=== PATIENT | female | born 1945 | race African-American/Black ===

== ENCOUNTER 2024-07-13 12:00 | Emergency (ER) | payer OTHER ==
[~2024-07-13] VITALS: Ht 165.1 cm; Wt 73.0 kg
[2024-07-13 12:05] VITALS: O2SAT 100
[2024-07-13] MEDS: ACETAMINOPHEN 325MG TABLET PO ONE (12:45)
[2024-07-13] MEDS: KETOROLAC 15MG/ML VIAL IV ONE (12:45)
[2024-07-13] MEDS: ONDANSETRON HCL 4MG/2ML INJ IV ONE (12:45)
[2024-07-13] MEDS: MORPHINE SULFATE 10 MG/ML INJ (NOT FOR IM USE) IV ONE (12:45)
[2024-07-13 12:55] LABS: BASOPHILS % 0.4 % (0.0-2.0); EOSINOPHILS % 1.2 % (0.0-5.0); HEMATOCRIT. 37.3 % (36.0-48.0); HEMOGLOBIN. 12.8 g/dL (12.0-16.0); LYMPHOCYTES % 19.8 % (20.0-50.0); MEAN CORPUSCULAR HEMOGLOBIN 31.6 pg (28.0-32.0); MEAN CORPUSCULAR HGB CONC 34.2 g/dL (31.0-37.0); MEAN CORPUSCULAR VOLUME 92.5 fL (81.0-99.0); MEAN PLATELET VOLUME 8.8 fl (7.4-10.4); MONOCYTES % 7.3 % (2.0-8.0); NEUTROPHILS % 71.3 % (40.0-76.0); PLATELET 177 x1000/uL (130-400); RED BLOOD CELL COUNT 4.04 mill/uL (4.2-5.4); RED CELL DISTRIBUTION WIDTH 13.9 % (11.6-14.6); WHITE BLOOD COUNT 6.3 x1000/uL (4.5-11.0)
[2024-07-13 13:01] LABS: CHLORIDE 106 mEq/L (98-107); POTASSIUM 3.9 mEq/L (3.5-5.1); SODIUM 140 mEq/L (136-145)
[2024-07-13 13:02] LABS: CALCIUM 9.7 mg/dL (8.7-10.4); CARBON DIOXIDE 29 mEq/L (21-32)
[2024-07-13 13:06] LABS: PARTIAL THROMBOPLASTIN TIME 25.4 sec (23.4-31.0); PROTHROMBIN TIME 11.5 sec (9.6-11.0)
[2024-07-13 13:07] LABS: CREATININE 0.9 mg/dL (0.6-1.0); GLUCOSE 102 mg/dL (70-105); UREA NITROGEN BLOOD 17 mg/dL (9-23)
[2024-07-13 13:09] LABS: ALANINE AMINOTRANSFERASE 16 IU/L (10-49); ALBUMIN 4.2 g/dL (3.2-4.8); ASPARTATE AMINOTRANSFERASE 22 IU/L (<34); BILIRUBIN TOTAL 0.8 mg/dL (0.1-1.0); PROTEIN TOTAL 6.6 g/dL (6.0-8.3)
[2024-07-13] MEDS: HYDROMORPHONE HCL/PF 2MG/ML INJ IV ONE (14:45)
[2024-07-13 17:27] LABS: FOLIC ACID (FOLATE) SERUM 14.99 ng/mL (>5.38); VITAMIN B12 SERUM 691 pg/mL (211-911)
[2024-07-13 17:42] LABS: IRON 66 ug/dL (50-170)
[2024-07-13 17:43] LABS: LDL CHOLESTEROL 72 mg/dL (5-100); TRIGLYCERIDE 55 mg/dL (0-150)
[2024-07-13 17:45] LABS: CHOLESTEROL 145 mg/dL (<200); HDL CHOLESTEROL 57 mg/dL (>65); TOTAL IRON BINDING CAPACITY 261 ug/dl (250-425)
[2024-07-13 17:47] LABS: T4 FREE 1.17 ng/dL (0.89-1.76)
[2024-07-13 17:48] LABS: THYROID STIMULATING HORMONE 2.28 uIU/mL (0.55-4.78)
[2024-07-13 18:00] VITALS: BP 118/62; PULSE 100; RESP 20; TEMP 37.11408; O2SAT 100
== END 2024-07-13 19:04 | disposition short-term general hospital (02) ==
LOC: ER 12:00 → EDBEDREQ 15:53 → CANBEDREQ 18:20 → ER 19:04
DX: S72.091A Other fracture of head and neck of right femur, initial encounter for closed fracture (principal); I10 Essential (primary) hypertension; W01.0XXA Fall on same level from slipping, tripping and stumbling without subsequent striking against object, initial encounter; Y93.89 Activity, other specified; Y92.89 Other specified places as the place of occurrence of the external cause; Y99.8 Other external cause status
CPT/HCPCS: 99285; 96374; 96375; 80061; 80053; 82607; 82746; 83036; 84439; 83540; 83550; 84443; 85025; 85610; 85730; 36415; 73502; 93005; J1885; J2405; J1170; J2270; C1893